=== PATIENT | female | born 1945 ===

== ENCOUNTER → 2016-07-11 | Outpatient (CLI) | payer OTHER, MEDICARE | LOC: FIMAGING 12:49 | DX: Z12.31 Encounter for screening mammogram for malignant neoplasm of breast (principal) | CPT/HCPCS: G0202 ==

== ENCOUNTER → 2017-07-24 | Outpatient (CLI) | payer OTHER, MEDICARE | LOC: FIMAGING 10:23 | PROVIDERS: ATTEND Physician Assistant Medical | DX: Z12.31 Encounter for screening mammogram for malignant neoplasm of breast (principal) ==

== ENCOUNTER → 2018-08-02 | Outpatient (CLI) | payer OTHER | LOC: FIMAGING 08:26 | PROVIDERS: ATTEND Physician Assistant Medical | DX: Z13.6 Encounter for screening for cardiovascular disorders (principal); Z82.49 Family history of ischemic heart disease and other diseases of the circulatory system ==

== ENCOUNTER → 2018-08-04 | Outpatient (CLI) | payer OTHER, MEDICARE | LOC: FIMAGING 11:34 | PROVIDERS: ATTEND Physician Assistant Medical | DX: Z12.31 Encounter for screening mammogram for malignant neoplasm of breast (principal) ==